=== PATIENT | female | born 1995 | race Hispanic/Latino ===

== ENCOUNTER 2019-01-19 06:38 | Outpatient (CLI) | payer MEDICAID ==
--- NOTE | 2019-01-19 07:53 | ULT ---
TRANSABDOMINAL PELVIC ULTRASOUND WITH GRAYSCALE, COLOR-FLOW AND SPECTRAL DOPPLER IMAGING: HISTORY: Pelvic pain FINDINGS: The uterus measures 9.6 x 4 x 5.3 cm without focal mass or endometrial fluid. Endometrium measures 5 mm in thickness. The right ovary measures 4.6 x 2.0 x 2.8 cm and the left ovary measures 8.8 x 6.3 x 9.5 cm. Flow is d emonstrated to both ovaries. There is a 2.5 cm cyst in the right ovary. A 9.3 x 4.6 x 7.8 cm cyst is seen arising from the left ovary. No free fluid is seen in the cul-de-sac. IMPRESSION: 9.3 x 4.6 x 7.8 cm cyst arising from the left ovary. A follow-up exam is recommended in 8-10 weeks. A gynecological consultation would be helpful.
== END 2019-01-19 06:39 | disposition home or self-care (01) ==
LOC: BICULT 06:38
PROVIDERS: ATTEND Advanced Practice Midwife
DX: R10.2 Pelvic and perineal pain (principal); N83.202 Unspecified ovarian cyst, left side
CPT/HCPCS: 76856

== ENCOUNTER 2019-07-03 11:04 | Observation (INO) | payer MEDICAID ==
[2019-07-03 11:39] LABS: Bacteria/HPF 4+ HPF (None Seen); Bilirubin Negative (Negative); Blood, Urine Negative (Negative); Clarity Turbid (Clear); Glucose, Urine (Dipstick) Normal (Negative); Leukocyte 250 Leu/uL (Negative); Nitrite 2+ (Negative); Protein, Urine (Dipstick) 20 mg/dL (Neg-Trace); Urobilinogen Normal mg/dL (Less than 2)
--- NOTE | 2019-07-03 13:33 | ULT ---
EXAM: OB ultrasound COMPARISON: None HISTORY: female with pelvic pain TECHNIQUE: Multiplanar grayscale and color Doppler images were obtained in a transabdominal ult rasound. FINDINGS: There is a single live intrauterine with heart rate of 152 bpm. A limited survey was performed which is unremarkable. Estimated weight is 161 g. Average age of the fetus based off today's examination is 16 weeks 4 days. BPD 3.48 cm -- 16 weeks 5 days HC 12.92 cm -- 16 weeks 4 days AC 10.70 cm -- 16 weeks 4 days FL 2.17 cm -- 16 weeks 3 days The placenta is anterior in location without focal abnormality. Amniotic fluid volume is subjectivel y within normal limits. The cervix is 3.3 cm in length. There is no evidence of placenta previa. IMPRESSION: Single live intrauterine with estimated age of 16 weeks 4 days.
[2019-07-03] MEDS ORDERED: cefTRIAXone\\ROCEPHIN 2 GM VIAL ONE (14:33)
[2019-07-03] MEDS ORDERED: Sodium Chloride 0.9% 10 ML ONE (14:44)
[2019-07-03 14:58] LABS: Pregnancy Test - Urine (BHCG) POSITIVE (Negative); Pregu Control Background? CLEAR/WHITE (CLR/WHITE); Pregu Control Bar Appear? YES (CONTROL BAR); Specific Gravity 1.027 (1.002-1.036)
[2019-07-03 14:59] LABS: Hemoglobin 11.9 g/dL (12.0-16.0); Mean Corpuscular HGB CONC 34.7 g/dL (32.0-36.0); Mean Corpuscular Hemoglobin 30.3 pg (27.0-31.0); Mean Corpuscular Volume 87.4 fL (78.0-98.0); Mean Platelet Volume 7.5 fL (7.4-10.4); Platelet Count 286 thou/uL (130-400); RBC Distribution Width 12.4 % (11.5-14.5); Red Blood Cell (RBC) Count 3.91 mill/uL (4.20-5.40); White Blood Cell (WBC) Count 8.8 thou/uL (4.8-10.8)
[2019-07-03 15:16] LABS: Band 18 % (5-11); Eosinophils 1 % (0-10); Lymphocytes 12 % (21-51); MDiff Complete? YES; Monocytes 4 % (0-10); Neutrophil 64 % (42-75); Platelet Morphology Comment Appears Adequate; RBC Morphology Normal; Reactive Lymphocytes 1 % (0-10)
[2019-07-03 15:21] LABS: ALT (SGPT) 9 U/L (8-55); AST (SGOT) 17 U/L (5-34); Albumin 4.1 g/dL (3.5-5.0); Alkaline Phosphatase 92 U/L (40-110); Anion Gap 15 mmol/L (10-20); BUN (Urea Nitrogen) Less than 4 mg/dL (7.0-18.7); Bilirubin, Total 0.3 mg/dL (0.2-1.2); Calc. Creatinine Clearance 0 mL/min (70-130); Calcium 9.1 mg/dL (7.8-10.44); Carbon Dioxide 21 mmol/L (22-29); Chloride 104 mmol/L (98-107); Estimated GFR-MDRD Greater than 90; Globulin 3.6 g/dL (2.4-3.5); Glucose 85 mg/dL (70-105); Potassium 3.7 mmol/L (3.5-5.1); Protein, Total 7.7 g/dL (6.0-8.3); Sodium 136 mmol/L (136-145)
[2019-07-03] MEDS ORDERED: Ondansetron PF 4 MG/2 ML Vial IVP PRN (16:51)
[2019-07-03] MEDS ORDERED: Lactated Ringer's 1,000 ML IV SCH (17:00)
[2019-07-03] MEDS ORDERED: Acetaminophen 500 MG TAB ONE (17:02)
[2019-07-03 18:10] VITALS: BMI 31.8
[2019-07-03 18:11] LABS: Bilirubin Negative (Negative); Blood, Urine Negative (Negative); Clarity Clear (Clear); Glucose, Urine (Dipstick) Normal (Negative); Leukocyte Negative Leu/uL (Negative); Mucous/LPF 1+ LPF (<2+); Nitrite 2+ (Negative); Protein, Urine (Dipstick) 10 mg/dL (Neg-Trace); RBC/HPF 0-3 HPF (0-3); Squamous Epithelial 0-3 HPF (0-3); Urobilinogen Normal mg/dL (Less than 2); WBC/HPF 0-3 HPF (0-3)
[2019-07-03 18:20] LABS: Bacteria/HPF None Seen HPF (None Seen)
[2019-07-03 19:23] LABS: Lactic Acid 2.1 mmol/L (0.5-2.2)
[2019-07-03 20:11] VITALS: BP 107/61; TEMP 98.5
--- NOTE | 2019-07-04 07:17 | SS ---
DATE OF ADMISSION: 07/03/2019 DATE OF DISCHARGE: 07/03/2019 HISTORY OF PRESENT ILLNESS: The patient is a 24-year-old female who presented today to the emergency room after experiencing some headache, cough, sore throat, and fever for 2 nights. She also reports that when she coughs, she is having some lower abdominal pain and was worried about the . During her evaluation down in the emergency room, the patient was noted to have a temperature of 98.6. Urinalysis with 4+ bacteria, 7 to 10 white blood cells, 11 to 20 squamous cells, 250 leukocyte esterase, 2+ nitrite, and 60 ketones. The patient was diagnosed with suspected pyelonephritis and reported to myself, the [employer] hospitalist on duty for admission to observation. She was given 2 g Rocephin there before transfer. In addition , the patient had chemistries of sodium 136, potassium of 3.7, chloride of 104, BUN of less than 4, creatinine is 0.64. AST of 17 and ALT of 9. White count of 8.8, hemoglobin 11.9, hematocrit 34.2, and platelets of 286,000. ultrasound was performed, and the patient was noted to have an intrauterine at 16 weeks and 4 days with an anterior placenta. The patient was reported with suspected pyelonephritis and brought up for observation. Here on the floor, I asked the nursing staff to get a cath urinalysis for evaluation as the other urinalysis was contaminated with likely skin damir and other skin components complicating interpretation of the urine. Urinalysis returned back at 1+ mucus, 1+ crystals , 0 white blood cells, 0 squamous cells, negative leukocyte esterase, 2+ nitrite, 80 of ketones, specific gravity 1.025. At the time of my evaluation, the patient reports that she came in for some minor lower abdominal pain that she was having when she coughed. She believes the rest of her symptoms were nonworrisome, the cough and cold that she believes she is experiencing currently. The patient denies any recent significant abdominal pain, vaginal bleeding, leakage of fluid, nausea, vomiting , diarrhea, constipation, any new rashes, hip problems, knee problems, or muscle weakness. Denies headache or any recent falls. The patient also reports that she has not established care with anybody, but has an appointment on Tuesday with [facility]. She is unsure who her doctor is going to be. PAST MEDICAL HISTORY: Asthma and takes albuterol on occasion, last taken yesterday; prior to that, had been several months. PAST SURGICAL HISTORY: laparoscopy for ovarian cyst. SOCIAL HISTORY: Denies drug, alcohol, or tobacco use. ALLERGIES: NO KNOWN DRUG ALLERGIES. MEDICATIONS: 1. Albuterol inhaler. 2. vitamins. PHYSICAL EXAMINATION: VITAL SIGNS: Temperature 99, pulse of 108, respiratory rate of 20, saturating 100% on room air. There is a 94% documented in the system. However, on part of more closer examination, the patient's fingernail turkish being dark blue, was likely contributing to this slow read, repeat on her earlobe as 100%. GENERAL: She appears to be in no acute distress. She is alert, oriented, cooperative, and pleasant to interact with. HEENT: Head is normocephalic and atraumatic. She does have fairly hoarse voice. LUNGS: Clear to auscultation bilaterally. HEART: Regular rate and rhythm. ABDOMEN: Gravid. She does have a little bit of tenderness with deviation of the uterus to the left side more than right. She has no CVA tenderness. No paravertebral tenderness. No SI joint tenderness. EXTREMITIES: Nontender, nonedematous. : Deferred at this time. ASSESSMENT AND PLAN: The patient is a 24-year-old female with an intrauterine at 16 weeks, likely suffering from upper respiratory infection and associated musculoskeletal pain from coughing. She has no evidence at this time that I can appreciate a significant kidney infection requiring admission to the hospital. She has been given 2 g of Rocephin. I have given her a prescription of Macrobid to take beginning tomorrow. Repeat urinalysis, though does not show bacteria, white blood cells, leukocyte esterase, it does have nitrites, and to err on the side of caution, we have continued her antibiotic course and have cultured the urine. The patient again has followup on Tuesday with her primary provider will be notified by the patient that there is a urine culture pending. Job ID: [id number] [facility]
[2019-07-04] MEDS ORDERED: FLU VACC QS2019-20(6MOS UP)/PF 60 MCG/0.5 ML SYRINGE IM ONE (09:00)
== END 2019-07-03 21:28 | disposition home or self-care (01) ==
LOC: ERS 11:04 → 3SE 17:27
PROVIDERS: ADMIT Obstetrics & Gynecology; ATTEND Obstetrics & Gynecology
DX: O99.89 Other specified diseases and conditions complicating pregnancy, childbirth and the puerperium (principal); R51 Headache; R05 Cough; R50.9 Fever, unspecified; R10.30 Lower abdominal pain, unspecified; O99.512 Diseases of the respiratory system complicating pregnancy, second trimester; J02.9 Acute pharyngitis, unspecified; J45.909 Unspecified asthma, uncomplicated; Z3A.16 16 weeks gestation of pregnancy
CPT/HCPCS: 36415; 76815; 80053; 81003; 81015; 81025; 83605; 85025; 86900; 86901; 87040; 87081; 87086; 87430; 87804; 96361; 96365; G0378; J0696

== ENCOUNTER 2020-10-08 08:04 | Outpatient (CLI) | payer OTHER ==
--- NOTE | 2020-10-08 08:49 | ULT ---
Pelvic ultrasound: 10/08/2020 COMPARISON: 01/19/2019 HISTORY: History of ovarian cysts TECHNIQUE: Multiplanar grayscale sonographic imaging of the pelvis obtained with transabdominal and e ndovaginal imaging. The ovaries are assessed with Doppler interrogation including color flow and spectral analysis FINDINGS: No free fluid is seen in the pelvis. The uterus measures 7.7 x 5.4 x 4.0 cm. Endometrial thickness within the region of the upper body and fundus is 1 cm. Right ovary measures 4.6 x 2.9 x 1.9 cm and left ovary measures 3.6 x 2.6 x 1.8 cm. The ovaries demon strate normal blood flow without evidence for mass. There is a linear echogenic structure consistent with an IUD which overlies the lower uterine segment /lower uterine body with a component extending into the right aspect of the uterus. IMPRESSION: IUD in place as detailed above. Ovaries appear unremarkable. No free pelvic fluid.
== END 2020-10-08 08:05 | disposition home or self-care (01) ==
LOC: BICULT 08:04
PROVIDERS: ATTEND Nurse Practitioner Women's Health
DX: Z87.42 Personal history of other diseases of the female genital tract (principal); Z97.5 Presence of (intrauterine) contraceptive device
CPT/HCPCS: 76856